=== PATIENT | male | born 1945 | race Hispanic/Latino ===

== ENCOUNTER 2021-07-28 17:06 | Inpatient (IN) | payer MEDICARE, BC ==
[~2021-07-28 17:06] MED LIST: Iopamidol 370 76% 100 ML VIAL ONE
[2021-07-28] MEDS ORDERED: Lidocaine Viscous Sol 2% 15 ml UD Cup ONE (17:35)
[2021-07-28] MEDS ORDERED: Mag-Al Plus 1200 MG/1200 MG/120 MG/30 ML UDCUP ONE (17:35)
[2021-07-28 17:38] LABS: Mean Corpuscular HGB CONC 35.7 g/dL (32.0-36.0); Mean Corpuscular Hemoglobin 29.7 pg (27.0-33.0); Mean Corpuscular Volume 83.3 fl (81.2-95.1); Mean Platelet Volume 10.4 fl (7.4-10.4); Platelet Count 297 10x3/uL (150-450); RBC Distribution Width 12.9 % (11.5-14.5); Red Blood Cell (RBC) Count 4.37 10x6/uL (4.32-5.72)
[2021-07-28 17:49] LABS: ALT (SGPT) 18 U/L (8-55); AST (SGOT) 17 U/L (5-34); Albumin 3.8 g/dL (3.4-4.8); Alkaline Phosphatase 111 U/L (40-110); Anion Gap 16 mmol/L (10-20); BUN (Urea Nitrogen) 32 mg/dL (8.4-25.7); Calc. Creatinine Clearance 0 mL/min (70-130); Calcium 8.6 mg/dL (7.8-10.44); Carbon Dioxide 23 mmol/L (23-31); Chloride 99 mmol/L (98-107); Globulin 3.6 g/dL (2.4-3.5); Glucose 115 mg/dL (83-110); Lipase 11 U/L (8-78); Protein, Total 7.4 g/dL (5.8-8.1); Sodium 135 mmol/L (136-145)
[2021-07-28 17:50] LABS: MDiff Complete? YES
[2021-07-28 17:57] LABS: Potassium 2.9 mmol/L (3.5-5.1)
[2021-07-28 18:08] LABS: Band 6 % (5-11); Lymphocytes 14 % (21-51); Monocytes 10 % (0-10); Neutrophil 62 % (42-75); Reactive Lymphocytes 8 % (0-10)
[2021-07-28] MEDS ORDERED: Potassium Chloride 20 MEQ TAB ONE (18:08)
[2021-07-28 18:10] LABS: Platelet Morphology Comment Appears Adequate; RBC Morphology Normal
[2021-07-28] MEDS ORDERED: Piperacillin/Tazobactam 4.5 GM VIAL ONE (19:39)
[2021-07-28] MEDS ORDERED: NS 0.9% w/ 20 MEQ KCL 1,000 ML ONE (19:42)
[2021-07-28] MEDS ORDERED: Enoxaparin Sodium 80 MG/0.8 ML SYRINGE ONE (19:49)
[2021-07-28 20:06] LABS: PTT 32.5 sec (22.0-33.0); Prothrombin Time 11.3 sec (9.5-12.1)
[2021-07-28] MEDS ORDERED: Acetaminophen 325 MG TAB PO PRN (20:21)
[2021-07-28] MEDS ORDERED: HYDROcodone/Acetaminophen 7.5/325 mg Tablet PO PRN (20:21)
[2021-07-28] MEDS ORDERED: Ondansetron PF 4 MG/2 ML Vial IVP PRN (20:21)
[2021-07-28] MEDS ORDERED: Morphine 4 MG/ML VIAL SLOW IVP PRN (20:21)
[2021-07-28] MEDS ORDERED: Ondansetron ODT 4 MG TAB PO PRN (20:21)
[2021-07-28] MEDS ORDERED: Tamsulosin HCl 0.4 MG CAP PO SCH (21:30)
[2021-07-28] MEDS ORDERED: Pantoprazole 40 MG VIAL IVP SCH (21:30)
[2021-07-28] MEDS ORDERED: Atorvastatin Calcium 10 MG TAB PO SCH (21:30)
[2021-07-28 21:43] VITALS: BMI 23.9
[2021-07-28 21:48] LABS: INR-International Normal Ratio 1.1; PTT 35.8 sec (22.0-33.0); Prothrombin Time 11.4 sec (9.5-12.1)
[2021-07-28 21:50] LABS: Magnesium 1.7 mg/dL (1.6-2.6); Potassium 3.3 mmol/L (3.5-5.1)
[2021-07-28] MEDS ORDERED: Vancomycin HCl 750 MG in Sodium Chloride 0.9% 250 ML 250 ML IVPB SCH (22:15)
[2021-07-28] MEDS: Piperacillin/Tazobactam 3.375 GM in Sodium Chloride 0.9% 100 ML IVPB SCH ×2 (22:40→22:49)
[2021-07-29] MEDS: Piperacillin/Tazobactam 3.375 GM in Sodium Chloride 0.9% 100 ML IVPB SCH ×3 (01:07→16:58)
[2021-07-29] MEDS ORDERED: Piperacillin/Tazobactam 3.375 GM VIAL ONE ×2 (01:10)
[2021-07-29] MEDS: Potassium Chloride 20 MEQ in Lactated Ringer's 1,000 ML IV SCH ×3 (03:43→20:16)
[2021-07-29 04:55] LABS: #Basophils 0.1 10x3/uL (0.0-0.2); #Eosinphils 0.1 10x3/uL (0.0-0.5); #Monocytes 1.6 10x3/uL (0.0-1.1); #Neutrophils 14.7 10x3/uL (1.5-8.4); %Basophils 0.3 % (0.0-2.0); %Eosinophils 0.3 % (0.0-6.0); %Lymphocytes 11.4 % (18.0-47.0); %Monocytes 8.7 % (0.0-10.0); %Neutrophils 78.7 % (40.0-75.0); Hemoglobin 11.7 g/dL (13.5-17.5); Mean Corpuscular HGB CONC 34.9 g/dL (32.0-36.0); Mean Corpuscular Hemoglobin 29.9 pg (27.0-33.0); Mean Corpuscular Volume 85.7 fl (81.2-95.1); Mean Platelet Volume 10.5 fl (7.4-10.4); Platelet Count 274 10x3/uL (150-450); Red Blood Cell (RBC) Count 3.91 10x6/uL (4.32-5.72); White Blood Cell (WBC) Count 18.7 10x3/uL (3.5-10.5)
[2021-07-29 05:19] LABS: Anion Gap 14 mmol/L (10-20); BUN (Urea Nitrogen) 28 mg/dL (8.4-25.7); Calc. Creatinine Clearance 60 mL/min (70-130); Calcium 8.7 mg/dL (7.8-10.44); Carbon Dioxide 22 mmol/L (23-31); Chloride 104 mmol/L (98-107); Glucose 112 mg/dL (83-110); Potassium 3.1 mmol/L (3.5-5.1); Sodium 137 mmol/L (136-145)
[2021-07-29 05:27] LABS: SARS-CoV-2 NAA Rapid Test Not Detected (NotDetected)
[2021-07-29] MEDS ORDERED: Potassium Chloride 20 MEQ TAB PO SCH (06:30)
[2021-07-29] MEDS ORDERED: Electrolyte Replacement Protocol 1 EACH FS SCH (07:45)
[2021-07-29] MEDS ORDERED: Magnesium 2 GM/50 ML(in water) 2 GM in Premix Bag 1 BAG IVPB SCH (08:00)
[2021-07-29] MEDS ORDERED: Magnesium 2 GM/50 ML BAG (IN WATER) ONE (09:03)
[2021-07-29] MEDS: Potassium Chloride 10 MEQ TAB PO SCH ×2 (09:06→16:58)
[2021-07-29] MEDS: Amlodipine 5 MG TAB PO SCH (09:07)
[2021-07-29] MEDS: Losartan Potassium 50 MG TAB PO SCH (09:09)
[2021-07-29] MEDS: Hydrochlorothiazide 25 MG TAB PO SCH (09:09)
[2021-07-29] MEDS: Enoxaparin Sodium 80 MG/0.8 ML SYRINGE SC SCH ×2 (09:09→20:08)
[2021-07-29] MEDS: Pantoprazole 40 MG VIAL IVP SCH ×2 (09:10→20:07)
[2021-07-29] MEDS ORDERED: Vancomycin 1.5 GRAM/300 ML BAG 1.5 GM in Premix Bag 1 BAG IVPB SCH (20:00)
[2021-07-29] MEDS ORDERED: Tamsulosin HCl 0.4 MG CAP PO SCH (21:00)
[2021-07-29] MEDS ORDERED: Atorvastatin Calcium 10 MG TAB PO SCH (21:00)
[2021-07-30] MEDS: Piperacillin/Tazobactam 3.375 GM in Sodium Chloride 0.9% 100 ML IVPB SCH ×2 (00:02→08:09)
[2021-07-30 04:36] LABS: Hemoglobin 11.5 g/dL (13.5-17.5); Mean Corpuscular HGB CONC 34.1 g/dL (32.0-36.0); Mean Corpuscular Hemoglobin 29.6 pg (27.0-33.0); Mean Corpuscular Volume 86.6 fl (81.2-95.1); Mean Platelet Volume 10.2 fl (7.4-10.4); Platelet Count 316 10x3/uL (150-450); RBC Distribution Width 13.1 % (11.5-14.5); Red Blood Cell (RBC) Count 3.89 10x6/uL (4.32-5.72); White Blood Cell (WBC) Count 15.4 10x3/uL (3.5-10.5)
[2021-07-30 04:56] LABS: Anion Gap 15 mmol/L (10-20); BUN (Urea Nitrogen) 22 mg/dL (8.4-25.7); Calc. Creatinine Clearance 70 mL/min (70-130); Carbon Dioxide 23 mmol/L (23-31); Chloride 104 mmol/L (98-107); Glucose 100 mg/dL (83-110); Potassium 3.6 mmol/L (3.5-5.1); Sodium 138 mmol/L (136-145)
[2021-07-30] MEDS: Potassium Chloride 20 MEQ in Lactated Ringer's 1,000 ML IV SCH ×2 (05:12→14:01)
[2021-07-30] MEDS: Losartan Potassium 50 MG TAB PO SCH (10:58)
[2021-07-30] MEDS: Enoxaparin Sodium 80 MG/0.8 ML SYRINGE SC SCH (10:58)
[2021-07-30] MEDS: Potassium Chloride 10 MEQ TAB PO SCH (10:58)
[2021-07-30] MEDS: Pantoprazole 40 MG VIAL IVP SCH (10:59)
[2021-07-30] MEDS: Hydrochlorothiazide 25 MG TAB PO SCH (10:59)
[2021-07-30] MEDS: Amlodipine 5 MG TAB PO SCH (10:59)
[2021-07-30 15:30] VITALS: BP 126/74; TEMP 97.7
== END 2021-07-30 14:30 | disposition home or self-care (01) | DRG 442 ==
LOC: CSHERS 17:06 → CSHTELE 21:01
PROVIDERS: ADMIT Family Medicine; ATTEND Internal Medicine
DX: I81 Portal vein thrombosis (principal); N13.8 Other obstructive and reflux uropathy; E78.5 Hyperlipidemia, unspecified; K21.9 Gastro-esophageal reflux disease without esophagitis; E87.6 Hypokalemia; K80.20 Calculus of gallbladder without cholecystitis without obstruction; N40.1 Benign prostatic hyperplasia with lower urinary tract symptoms; N18.31 Chronic kidney disease, stage 3a; I25.10 Atherosclerotic heart disease of native coronary artery without angina pectoris; E78.00 Pure hypercholesterolemia, unspecified; K82.8 Other specified diseases of gallbladder; I12.9 Hypertensive chronic kidney disease with stage 1 through stage 4 chronic kidney disease, or unspecified chronic kidney disease; Z20.822 Contact with and (suspected) exposure to COVID-19; Z79.899 Other long term (current) drug therapy; Z90.49 Acquired absence of other specified parts of digestive tract; Z87.891 Personal history of nicotine dependence; Z98.42 Cataract extraction status, left eye; Z98.41 Cataract extraction status, right eye
CPT/HCPCS: 36415; 71045; 71275; 74170; 76705; 78227; 80048; 80053; 82105; 83690; 83735; 84484; 85025; 85027; 85610; 85730; 87040; 93005; 93010; 96365; 96368; 96372; A9537; C9113; J1650; J2543; J3370; J3475; J3480; J3490; J7050; J7120; Q9967; U0002

== ENCOUNTER 2022-01-02 08:57 | Outpatient (CLI) | payer MEDICARE, BC ==
[2022-01-02] MEDS ORDERED: Iopamidol 370 76% 100 ML VIAL ONE (09:37)
== END 2022-01-02 08:58 | disposition home or self-care (01) ==
LOC: CSHCT 08:57
PROVIDERS: ATTEND Internal Medicine Hematology & Oncology
DX: I81 Portal vein thrombosis (principal); K57.32 Diverticulitis of large intestine without perforation or abscess without bleeding; K80.20 Calculus of gallbladder without cholecystitis without obstruction; N32.3 Diverticulum of bladder; N32.89 Other specified disorders of bladder; N40.0 Benign prostatic hyperplasia without lower urinary tract symptoms
CPT/HCPCS: 74177; 82565